=== PATIENT | female | born 1950 ===

== ENCOUNTER 2018-02-08 07:49 | Day surgery (SDC) | payer MEDICARE ==
[2018-02-07 12:01] VITALS: BMI 35.7
[2018-02-08] MEDS ORDERED: EPINEPHrine 1 mg/ml (1:1000) Inj ONE ×2 (11:18)
[2018-02-08] MEDS ORDERED: Lidocaine 1% w Epi 1:100,000 Inj ONE (11:18)
[2018-02-08] MEDS ORDERED: ceFAZolin IV 1 gm in Dextrose 2 GM/100 ML BAG IVPB ONE (11:18)
[2018-02-08] MEDS ORDERED: Propofol 10 mg/ml Inj (20 ML) ONE (12:27)
[2018-02-08] MEDS ORDERED: Sodium Chloride 0.9% 1,000 ML IV ONE (12:36)
[2018-02-08] MEDS ORDERED: ePHEDrine 50 mg/ml Inj ONE (13:15)
[2018-02-08] MEDS ORDERED: MethylPREDNISolone Depo 40 mg/ml Inj ONE (13:33)
[2018-02-08] MEDS ORDERED: Bupivacaine HCl 0.25% PF (30 ml) Inj ONE (13:33)
[2018-02-08] MEDS ORDERED: methylPREDNISolone Depo 80 mg/ml Inj ONE (13:33)
[2018-02-08] MEDS ORDERED: Acetaminophen 650mg/20.3ml solution UD PO STA (14:05)
[2018-02-08] MEDS ORDERED: HYDROmorphone 0.5 mg/0.5 ml ISec IVP PRN (14:05)
--- NOTE | 2018-02-08 14:09 | PCM.SURG1 ---
Surgeon's Initial Post Op Note - Surgeon's Notes Surgeon: Asaf Willams MD [employer] Patcher: Olya Jimenes PA-C Type of Anesthesia: General Endo Pre-Operative Diagnosis: Right knee meniscus tear and effusion Operative Findings: see op report Post-Operative Diagnosis: same as pre-op dx Operation Performed: Right knee arthroscopy, partial meniscectomy, synovectomy, chondroplasty Specimen/Specimens Removed: none Estimated Blood Loss: EBL {In ML}: 3 Date of Surgery/Procedure: 02/08/18 Time of Surgery/Procedure: 13:00
[2018-02-08] MEDS ORDERED: Oxycodone/Acetaminophen 5/325 mg Tab PO PRN (14:12)
[2018-02-08] MEDS ORDERED: Lactated Ringer's 1,000 ML IV SCH (14:15)
[2018-02-08] MEDS ORDERED: Lactated Ringer's 1,000 ML IV ONE (14:29)
[2018-02-08] MEDS ORDERED: HYDROmorphone 0.5 mg/0.5 ml ISec ONE (14:35)
[2018-02-08 15:55] VITALS: RESP 18
[2018-02-08] MEDS ORDERED: Oxycodone/Acetaminophen 5/325 mg Tab PO ONE (16:10)
[2018-02-08 17:00] VITALS: O2SAT 96
[2018-02-08 17:56] VITALS: BP 123/76; PULSE 86; TEMP 97.6
--- NOTE | 2018-02-09 00:58 | OP ---
Copied To: Asaf Willams MD Attending MD: Asaf Willams MD PROCEDURE DATE: 02/08/2018 SUEDE BRUSHER: Olya Jimenes PA-C PREOPERATIVE DIAGNOSES: 1. Right knee medial meniscal tear. 2. Synovitis. 3. Adhesions. POSTOPERATIVE DIAGNOSES: 1. Right knee medial synovitis of all three compartments. 2. Tear of the posterior horn body of the medial meniscus. 3. Tear of the body and posterior horn of lateral meniscus. 4. Grade III chondromalacia medial femoral condyle. 5. Grade II chondromalacia patella. 6. Patellofemoral adhesions. ANESTHESIA: General. PROCEDURES: 1. Right knee arthroscopy, partial medial and lateral meniscectomy. 2. Major synovectomy of all three compartments. 3. Chondroplasty of the patella and medial femoral condyle. 4. Lysis of adhesions. 5. Injection of the large joint. EBL: 5 mL. SPECIMENS: None. DRAINS: None. CLOSURE: Primary. FLUIDS: See anesthesia sheet. COMPLICATIONS: None. INDICATIONS: After failing a course of non-operative therapy, the patient elected to undergo the above procedure. In the office, the risks and possible complications of knee arthroscopy were discussed in detail with the patient. These risks include but are not limited to continued pain, lack of motion, infection, vascular injury, DVT/PE, nerve injury including peroneal nerve dysfunction, reflex sympathetic dystrophy, compartment syndrome, unforeseen medical and/or anesthesia complications, limb loss, and even . The patient expressed an understanding of the risks and possible benefits of the procedure, and is also aware of the alternatives to surgery. An informed consent was obtained, and was checked immediately pre-op. PROCEDURE: The patient was correctly identified in the holding area and the right knee was marked with the surgeons initials. The patient was transported to the operating room and placed in the supine position, general anesthesia was obtained, a pre-operative orthopaedic exam revealed effusion 1+, range of motion is 5 to 120, stable to varus and valgus stress. The lower extremity was prepped and draped in the standard fashion, and the thigh was placed in an arthroscopic leg lin. A well-padded tourniquet was applied to the patient's thigh. Time out was completed confirming the correct operative site. Esmarch was used to exsanguinate the leg and tourniquet was inflated to 300 mmHg. A standard anterolateral viewing portals were made with a #11 blade after sub-dermal 1% lidocaine with epinephrine injection. The knee was distended with normal saline and epinephrine in a 1:1,000,000 mixture, at an initial pressure of 35 mmHg. The arthroscope was inserted from the anterolateral portal and moved into the medial compartment. Next, the anteromedial working portal was made with spinal needle localization. The arthroscopic probe was inserted, and all compartments of the knee were sequentially visualized. FINDINGS: Arthroscopic examination of the knee revealed: 1. Major synovitis of all three compartments. 2. Complex tear of the posterior horn and the body of medial meniscus. 3. Tear of the body of posterior horn of lateral meniscus. 4. Grade III chondromalacia, medial femoral condyle. 5. Grade II chondromalacia of the patella. 6. Patellofemoral adhesions. The anterior cruciate ligament and posterior cruciate ligament were intact. Partial medial meniscectomy was performed with a combination of hand instruments and a 4 mm motorized shaver. The meniscus was debrided to a smooth, stable border with an excursion of less than 3 mm. Partial lateral meniscectomy was performed with a combination of hand instruments and a 4 mm motorized shaver. The meniscus was debrided to a smooth, stable border with an excursion of less than 5 mm. The motorized shaver was used to mechanically debride the loose, fibrillated and fragmented chondral edges of the medial femoral condyle and patella to a stable border. Extreme care was taken to not disrupt the adjacent chondral surface. The edges of injured chondral area were probed to ensure stability after the shaver was withdrawn from the knee. The motorized shaver was used to perform a synovectomy of the medial, lateral and patellofemoral compartments. The hypertrophic synovium was resected with minimal bleeding. No synovial incarceration was noted after synovectomy when the knee was put through a full passive range of motion. Due to injuries to the patellofemoral region resulting in organized scar and suprapatellar adhesions, a decision was made to perform and anterior interval release to decrease the patellofemoral joint reaction force and relieve pressures over the patella and trochlea. The synovectomy was carried over to the suprapatellar pouch and an anterior interval release was performed over the anterior compartment and the suprapatellar pouch with the motorized shaver. The anterior fat pad was released and debulked during this procedure. The inflow was shut off and the area checked for hemostasis. Small bleeders were coagulated with the radiofrequency device. Finally, 1 mL of 40 mg Depo-Medrol mixed with 9 mL of 0.25% Marcaine was injected within the knee joint. CLOSURE: Portal closure was then accomplished utilizing sutures, and sterile dressing was applied consisting of Xeroform, 4 x 4s, sterile gauze, and two ABDs with a 6" Sukumar wrap. In addition, an "Ice-Man" automated portable cooling system pad was applied to the knee, over top of the sterile gauze and underneath the Sukumar-wrap. This modality is medically necessary to maximize postoperative analgesia and to decrease the use of narcotic analgesics in the postoperative period. The sponge and needle count was correct at the end of the case, and all instruments were inspected and free of defects. Anesthesia was reversed and the patient was transferred to the recovery room in stable condition, having tolerated the procedure well. The attending surgeon was scrubbed and present throughout the critical portions of the case, including all of the intra-articular arthroscopic procedures. Postoperatively, the patient will be weight bearing as tolerated and will utilize my standard post arthroscopy rehab protocol. The patient will be started on straight leg raising and quadriceps setting exercises in the recovery room and will progress to prone hangs as well as prone knee flexion exercises using an active assisted construct. During this procedure, I was assisted by Olya Jimenes PA-C, who assisted in positioning the patient on the operating room table as well as transferring the patient from the operating room table to the recovery room stretcher. In addition, Olya Jimenes PA-C assisted me during the actual operative procedure by positioning the patient's extremity to allow for easier arthroscopic access to all areas of the joint. The presence Olya Jimenes PA-C as my operative assistant refinery operator was medically necessary to ensure the utmost safety of the patient in the pre, intra-, and post-operative periods. Asaf Willams MD
== END 2018-02-08 18:00 | disposition home or self-care (01) ==
LOC: H.OPSURG 07:49
PROVIDERS: ATTEND Orthopaedic Surgery
DX: S83.241A Other tear of medial meniscus, current injury, right knee, initial encounter (principal); M65.861 Other synovitis and tenosynovitis, right lower leg; E11.9 Type 2 diabetes mellitus without complications; Z91.040 Latex allergy status; X58.XXXA Exposure to other specified factors, initial encounter; Y92.9 Unspecified place or not applicable
CPT/HCPCS: 29876; 29880; 82948; 97161; G8978; G8979; G8980; J0171; J0690; J1040; J1170; J2001; J2405; J2704; J3010; J7030; J7120